=== PATIENT | female | born 1965 | race Caucasian/White ===

== ENCOUNTER 2021-11-02 12:48 | Outpatient (CLI) | payer OTHER, SELFPAY ==
--- NOTE | 2021-11-02 13:00 | CRLHL7_ITS ---
For Patients: As a result of the Century Cures Act, medical imaging exams and procedure reports are released immediately into your electronic medical record. You may view this report before your referring provider. If you have questions, please contact your health care provider. BILATERAL SCREENING MAMMOGRAM WITH COMPUTER-AIDED DETECTION AND TOMOSYNTHESIS TECHNIQUE: CC and MLO views were obtained. These mammographic images have been obtained using full-field digital technique. These mammographic images were interpreted with the benefit of computer-aided detection. Breast Tomosynthesis was used in this interpretation. COMPARISON FILM: 11/20/20, 12/11/19, 12/27/18. FINDINGS: The breasts are heterogeneously dense, which may obscure small masses IMPRESSION: There is no radiographic evidence for malignancy. ASSESSMENT: BI-RADS Category 2: Benign RECOMMENDATION: Routine screening mammogram in 1 year. A lay language report of this examination will be provided to the patient. Yemi Tran M.D. Diagnostic/Musculoskeletal Radiologist [email or web address] RICK/Dictated by: Yemi Tran MD @ 11/03/2021 7:39:00 AM (Electronically Signed)
== END 2021-11-02 12:49 | disposition home or self-care (01) ==
LOC: MAMMO 12:50
PROVIDERS: PCP Physician Assistant Medical; Visit Provider Physician Assistant Medical
DX: Z12.31 Encounter for screening mammogram for malignant neoplasm of breast (principal); R92.2 Inconclusive mammogram
CPT/HCPCS: 77063; 77067

== ENCOUNTER 2021-11-25 07:38 | Outpatient (CLI) | payer OTHER, SELFPAY ==
[2021-11-25 13:38] LABS: Chloride* 105 mmol/L (96-114); Potassium* 4.4 mmol/L (3.6-5.1); Sodium* 139 mmol/L (135-149)
[2021-11-25 13:41] LABS: Blood Urea Nitrogen* 12 mg/dL (7-30); Carbon Dioxide* 27 mmol/L (20-32); Cholesterol* 181 mg/dL (90-199); Creatinine* 0.8 mg/dL (0.5-1.5); Estimated Glomerular Filt Rate 86 ml/min; Glucose* 106 mg/dL (60-115); Triglycerides* 176 mg/dL (40-149)
[2021-11-25 13:42] LABS: Calcium* 9.1 mg/dL (8.4-10.6); HDL Cholesterol* 46 mg/dL (>=50); LDL Cholesterol Calculated 100 mg/dL (<100)
[2021-11-26 16:56] LABS: Thyroid Stimulating Hormone* 0.897 uIU/mL (0.270-4.20)
== END 2021-11-25 07:39 | disposition home or self-care (01) ==
PROVIDERS: PCP Physician Assistant Medical; Visit Provider Physician Assistant Medical
DX: Z00.00 Encounter for general adult medical examination without abnormal findings (principal); E78.5 Hyperlipidemia, unspecified; E66.9 Obesity, unspecified; I10 Essential (primary) hypertension; R79.89 Other specified abnormal findings of blood chemistry
CPT/HCPCS: 80048; 80061; 84443

== ENCOUNTER 2021-12-16 08:11 | Outpatient (CLI) | payer OTHER, SELFPAY ==
--- NOTE | 2021-12-16 08:15 | CRLHL7_ITS ---
For Patients: As a result of the Century Cures Act, medical imaging exams and procedure reports are released immediately into your electronic medical record. You may view this report before your referring provider. If you have questions, please contact your health care provider. INDICATION: Difficulty swallowing TECHNIQUE: Modified barium swallow. Fluoroscopic time 53 seconds. COMPARISON: None FINDINGS/IMPRESSION: Anatomical structures are normal. Swallowing mechanism appears within normal limits. No episodes of penetration or aspiration. No significant findings. Dictated by Cedric Maldonado MD @ 12/16/2021 9:04:31 AM (Electronically Signed)
--- NOTE | 2021-12-16 12:51 | SLP.EVAL ---
Please review, sign and return Thank you Laurie Plummer ELEVATOR ADJUSTER ELEVATOR ADJUSTER Hueal ELEVATOR ADJUSTER Evreema Start: 12/16/21 08:57 Freq: Status: Active Protocol: Document 12/16/21 08:57 LUIS FERNANDO (Rec: 12/16/21 09:07 [facility] [id number]) E-signed By Laurie Plummer CCC, ELEVATOR ADJUSTER ELEVATOR ADJUSTER System Review History & Reason For Referral Type of Speech Evaluation Modified Barium Swallow Evaluation Rehabilitation Order Evaluation Date of Order 11/26/21 Reason for Referral intermittent swallowing difficulty Medical Diagnosis Dysphagia Treatment Diagnosis Dysphagia Patient Orientation Orientation & Mental Status Within normal limits ELEVATOR ADJUSTER Initial Assessment/POC Subjective Information Subjective/Pain Comment Patient independently ambulated to the xray suite. She is pleasant and cooperative. Assessment & Impression Assessment/Impression Patient is a 56 year old female referred for a modified barium swallow study due to intermittent swallowing difficulty. She describes difficulty mostly with liquid. It is the feeling of getting stuck and not being able to swallow. She reports she is able to breath but it seems restricted and she sometimes has to throw up to get it out. She reports her provider thinks she may have reflux for which she takes an acid software qa system specialist. ORAL MOTOR FUNCTION AND DENTITION Patient has adequate tongue and lip movement and very good natural dentition. THIN LIQUID Patient able to take sips of thin liquid by cup both small and large. She was able to control each bolus well and initiated a swallow in a timely manner. She had good pharyngeal clearance. With the larger amounts she had flash penetration that was ejected and no aspiration occurred. With smaller amounts no penetration occurred. PUREE Patient given a teaspoon of puree. She manipulated and swallowed without penetration, aspiration or pharyngeal residue. MUFFIN AND COOKIE WITH BARIUM PUREE Patient given separate trials of muffin and cookie each mixed with barium puree. She was able to chew and manipulate each consistency without difficulty, swallow and had no penetration, aspiration or pharyngeal residue. IMPRESSIONS AND RECOMMENDATIONS Patient exhibits a safe functional swallow with all consistencies. Recommended that she take smaller sips with liquids and when these episodes occur, try to remain relaxed. Therapist Signature & License # I Certify That Therapy Services Provided Therapist Signature & License Number Laurie Plummer CCC-ELEVATOR ADJUSTER, # [id number] Physician Signature Signature of Physician Indicates Medically Needed Services Physician Signature & Date Required Please Sign/Date Here Speech/Language Pathology Billing Units Billing Units Eval Swallow Motion Fluoro 1
== END 2021-12-16 08:12 | disposition home or self-care (01) ==
LOC: RAD 08:12
PROVIDERS: PCP Physician Assistant Medical; Visit Provider Physician Assistant Medical
DX: R13.10 Dysphagia, unspecified (principal)
CPT/HCPCS: 74230; 92611

== ENCOUNTER 2021-12-22 09:23 | Outpatient (CLI) | payer OTHER, SELFPAY ==
--- NOTE | 2022-01-19 13:15 | W.PM.SLEEP ---
Sleep Study Details Details Interpreting Provider: Parveen Viramontes MD Date of Sleep Study: 12/22/21 Sleep Study Details: STUDY TYPE:? Home ? BMI:? 42.9 ORDERING PROVIDER:? Laly INDICATION:? Concerns about sleep apnea ? SLEEP SUMMARY:? 461.4 monitored minutes RESPIRATORY SUMMARY:? AHI 15.3. The AHI in the supine position was 8.9. This patient was actually worse in the left and right lateral positions. Low oxygen 85 3.8% of study oxygen was less than 90% Snoring 8.7% PERIODIC LIMB MOVEMENTS OF SLEEP:? Not recorded CARDIAC:? 46-95, mean 60.8 IMPRESSION:? This study demonstrates moderate obstructive sleep apnea with lateral position dependency. RECOMMENDATION: Treatment options include CPAP, dental appliance, weight loss and/or airway expansion surgery. A dental appliance is perhaps less likely to be effective given that the patient is not supine position dependent
== END 2021-12-22 09:24 | disposition home or self-care (01) ==
LOC: SLEEP 01-07 09:24
PROVIDERS: PCP Physician Assistant Medical; Visit Provider Otolaryngology
DX: G47.33 Obstructive sleep apnea (adult) (pediatric) (principal)
CPT/HCPCS: 95806

== ENCOUNTER 2022-03-31 13:30 | Outpatient (CLI) | payer BC, SELFPAY ==
[2022-03-31 16:50] LABS: Ferritin* 58.6 ng/mL (11.1-264.0)
== END 2022-03-31 13:31 | disposition home or self-care (01) ==
LOC: FRMREF 13:31
PROVIDERS: PCP Physician Assistant Medical; Visit Provider Physician Assistant Medical
DX: G25.81 Restless legs syndrome (principal)
CPT/HCPCS: 82728

== ENCOUNTER 2023-01-05 07:29 | Outpatient (CLI) | payer BC, SELFPAY ==
--- NOTE | 2023-01-05 07:45 | CRLHL7_ITS ---
For Patients: As a result of the Cures Act, medical imaging exams and procedure reports are released immediately into your electronic medical record. You may view this report before your referring provider. If you have questions, please contact your health care provider. DIGITAL DIAGNOSTIC BILATERAL MAMMOGRAM USING TOMOSYNTHESIS AND COMPUTER-AIDED DETECTION LEFT BREAST ULTRASOUND CLINICAL HISTORY: LEFT breast lump. COMPARISON: 11/02/2021, 11/20/2020, 12/11/2019. TECHNIQUE: Digital BILATERAL mammogram in four projections. Tomosynthesis and CAD utilized. Real-time ultrasound imaging of LEFT breast with imaging documentation. Scanning was performed by both the technologist and the radiologist. BREAST COMPOSITION: There are areas of scattered fibroglandular density. FINDINGS: 3D CC/MLO BILATERAL mammogram images submitted. No suspicious masses or architectural distortion. No suspicious calcifications or adenopathy. Post biopsy changes left breast. Targeted LEFT breast ultrasound performed in the area of concern at 2 o`clock 4 cm from the nipple. Normal fibroglandular tissue is present with incidental multi duct ectasia and a simple cyst measuring 1 cm. IMPRESSION: No suspicious findings. No evidence of malignancy. RECOMMENDATIONS: Annual BILATERAL screening mammography. Results and recommendations discussed with the patient. BI-RADS Category 2: Benign A lay language report of this examination will be provided to the patient. Dictated by Cedric Maldonado MD @ 01/05/2023 8:48:11 AM /Dictated by: Cedric Maldonado MD @ 01/05/2023 8:48:00 AM (Electronically Signed)
--- NOTE | 2023-01-05 08:15 | CRLHL7_ITS ---
For Patients: As a result of the Cures Act, medical imaging exams and procedure reports are released immediately into your electronic medical record. You may view this report before your referring provider. If you have questions, please contact your health care provider. PLEASE SEE DIGITAL DIAGNOSTIC BILATERAL MAMMOGRAM PERFORMED SAME DAY CRL:mk terrazas/Dictated by: Cedric Maldonado MD @ 01/05/2023 8:48:00 AM (Electronically Signed)
== END 2023-01-05 07:30 | disposition home or self-care (01) ==
LOC: MAMMO 07:30
PROVIDERS: PCP Physician Assistant Medical; Visit Provider Physician Assistant Medical
DX: N63.20 Unspecified lump in the left breast, unspecified quadrant (principal)
CPT/HCPCS: 76642; 77066; 80053; 80061; 82306; 82607; 84443; G0279

== ENCOUNTER 2023-11-02 22:19 | Outpatient (REF) | payer BC, SELFPAY ==
[2023-11-02 23:03] LABS: Alanine Aminotransferase* 25 U/L (4-35); Aspartate Amino Transferase* 24 U/L (12-35)
== END 2023-11-02 22:20 | disposition home or self-care (01) ==
LOC: NPINS 22:19
PROVIDERS: PCP Physician Assistant Medical; Visit Provider Dermatology
DX: B35.1 Tinea unguium (principal)
CPT/HCPCS: 84450; 84460

== ENCOUNTER 2024-01-03 07:36 | Outpatient (CLI) | payer BC, SELFPAY | END 2024-01-03 07:37 | disposition home or self-care (01) | LOC: NFLDREF 01-04 10:49 | PROVIDERS: PCP Physician Assistant Medical; Referring Provider Physician Assistant Medical; Visit Provider Physician Assistant Medical | DX: Z00.00 Encounter for general adult medical examination without abnormal findings (principal); I10 Essential (primary) hypertension; E78.5 Hyperlipidemia, unspecified; R79.89 Other specified abnormal findings of blood chemistry | CPT/HCPCS: 80053; 80061 ==

== ENCOUNTER 2024-01-26 15:24 | Outpatient (CLI) | payer BC, SELFPAY ==
--- NOTE | 2024-01-26 15:20 | CRLHL7_ITS ---
For Patients: As a result of the Century Cures Act, medical imaging exams and procedure reports are released immediately into your electronic medical record. You may view this report before your referring provider. If you have questions, please contact your health care provider. BILATERAL SCREENING MAMMOGRAM WITH COMPUTER-AIDED DETECTION AND TOMOSYNTHESIS TECHNIQUE: CC and MLO views were obtained. These mammographic images have been obtained using full-field digital technique. These mammographic images were interpreted with the benefit of computer-aided detection. Breast tomosynthesis was used in this interpretation. COMPARISON FILM: 01/05/23, 11/02/21, 11/20/20. FINDINGS: There are scattered areas of fibroglandular density. IMPRESSION: There is no radiographic evidence for malignancy. ASSESSMENT: BI-RADS Category 2: Benign RECOMMENDATION: Routine screening mammogram in 1 year. A lay language report of this examination will be provided to the patient. CEDRIC PAUL M.D. Diagnostic Radiologist [email or web address] Transcribed: 2:[address]/Dictated by: Cedric Paul MD @ 01/27/2024 11:02:00 AM (Electronically Signed)
== END 2024-01-26 15:25 | disposition home or self-care (01) ==
LOC: MAMMO 15:25
PROVIDERS: PCP Physician Assistant Medical; Visit Provider Physician Assistant Medical
DX: Z12.31 Encounter for screening mammogram for malignant neoplasm of breast (principal)
CPT/HCPCS: 77063; 77067

== ENCOUNTER 2024-03-23 13:09 | Outpatient (CLI) | payer OTHER, SELFPAY | END 2024-03-23 13:10 | disposition home or self-care (01) | LOC: NFLDREF 03-25 19:29 | PROVIDERS: PCP Physician Assistant Medical; Referring Provider Physician Assistant Medical; Visit Provider Physician Assistant | DX: R82.90 Unspecified abnormal findings in urine (principal) | CPT/HCPCS: 87086 ==